=== PATIENT | female | born 1975 | race Caucasian/White ===

== ENCOUNTER 2016-12-06 12:28 | Emergency (ER) | payer MEDICAID ==
[~2016-12-06] VITALS: Ht 162.6 cm; Wt 79.8 kg
[~2016-12-06 12:28] MED LIST: LEXAPRO10 MG PO; PREDNISONE PO; ZOC10 PO
[2016-12-06 13:32] VITALS: BP 107/66
== END 2016-12-06 13:32 | disposition home or self-care (01) ==
LOC: ED 12:28
DX: R21 Rash and other nonspecific skin eruption (principal); L29.9 Pruritus, unspecified; Z88.5 Allergy status to narcotic agent
CPT/HCPCS: J2930; Q0163

== ENCOUNTER 2016-12-22 10:13 | Emergency (ER) | payer MEDICAID ==
[2016-12-22 10:21] VITALS: BP 102/51
== END 2016-12-22 12:09 | disposition home or self-care (01) ==
LOC: ED 10:13
DX: M54.5 Low back pain (principal); Z88.5 Allergy status to narcotic agent

== ENCOUNTER 2017-01-24 15:13 | Emergency (ER) | payer MEDICAID ==
[~2017-01-24] VITALS: Ht 162.6 cm; Wt 79.8 kg
[2017-01-24 16:58] VITALS: BP 122/68
== END 2017-01-24 16:58 | disposition home or self-care (01) ==
LOC: ED 15:13
DX: K08.89 Other specified disorders of teeth and supporting structures (principal); Z88.5 Allergy status to narcotic agent

== ENCOUNTER 2017-03-14 08:46 | Emergency (ER) | payer MEDICAID ==
[~2017-03-14] VITALS: Ht 162.6 cm; Wt 80.3 kg
[2017-03-14 09:34] VITALS: BP 117/78
== END 2017-03-14 09:34 | disposition home or self-care (01) ==
LOC: ED 08:46
DX: J02.9 Acute pharyngitis, unspecified (principal); J98.01 Acute bronchospasm; R30.0 Dysuria

== ENCOUNTER 2017-08-02 13:16 | Emergency (ER) | payer MEDICAID ==
[~2017-08-02] VITALS: Ht 162.6 cm; Wt 80.7 kg
[2017-08-02 14:26] VITALS: Ht 162.6 cm; Wt 80.7 kg
[2017-08-02 16:40] LABS: BASOPHIL % 0.8 % (0-2); PLATELET COUNT 221 x10^3mcL (130-400); RED CELL DISTRIBUTION WIDTH 13.6 % (11.5-14.5)
[2017-08-02 16:52] LABS: CALCIUM 8.7 mg/dL (8.5-10.1); CARBON DIOXIDE 27.1 mmol/L (21-32); CHLORIDE SERUM 102 mmol/L (98-107); CREATININE SERUM 0.8 mg/dL (0.6-1.0); GFR1 > 60 mL/min; GLUCOSE SERUM 86 mg/dL (74-106); POTASSIUM SERUM 3.7 mmol/L (3.5-5.1); SODIUM SERUM 140 mmol/L (136-145)
[2017-08-02 17:00] LABS: ALKALINE PHOSPHATASE 61 U/L (46-116); ALT/SGPT 29 U/L (14-59); AST/SGOT 14 U/L (15-37); BILIRUBIN TOTAL 0.4 mg/dL (0.20-1.00); LIPASE 115 IU/L (73-393)
[2017-08-02 18:11] VITALS: BP 99/59
== END 2017-08-02 19:03 | disposition home or self-care (01) ==
LOC: ED 13:16
PROVIDERS: Emergency Medicine
DX: R10.9 Unspecified abdominal pain (principal); R11.0 Nausea; Z88.5 Allergy status to narcotic agent; Z90.49 Acquired absence of other specified parts of digestive tract
CPT/HCPCS: 36415; J1885; Q0162

== ENCOUNTER 2018-03-18 10:12 | Emergency (ER) | payer MEDICAID ==
[~2018-03-18] VITALS: Ht 162.6 cm; Wt 83.5 kg
[2018-03-18 10:19] VITALS: Ht 162.6 cm; Wt 83.5 kg
[2018-03-18 13:05] VITALS: BP 113/59
== END 2018-03-18 13:05 | disposition home or self-care (01) ==
LOC: ED 10:12
DX: S43.402A Unspecified sprain of left shoulder joint, initial encounter (principal); X58.XXXA Exposure to other specified factors, initial encounter; Y93.89 Activity, other specified; Y92.89 Other specified places as the place of occurrence of the external cause; Y99.8 Other external cause status
CPT/HCPCS: J1885

== ENCOUNTER 2018-04-19 11:39 | Emergency (ER) | payer MEDICAID ==
[~2018-04-19] VITALS: Ht 162.6 cm; Wt 82.6 kg
[2018-04-19 12:47] LABS: microscopic required? YES; urine erythrocyte NEGATIVE (NEGATIVE)
[2018-04-19 14:50] VITALS: BP 132/74
== END 2018-04-19 14:50 | disposition home or self-care (01) ==
LOC: ED 11:39
PROVIDERS: Specialist
DX: G89.29 Other chronic pain (principal); R10.2 Pelvic and perineal pain; Z87.19 Personal history of other diseases of the digestive system; Z90.89 Acquired absence of other organs; Z90.49 Acquired absence of other specified parts of digestive tract; Z98.51 Tubal ligation status
CPT/HCPCS: 87491; 87591

== ENCOUNTER 2018-08-01 11:40 | Emergency (ER) | payer MEDICAID ==
[~2018-08-01] VITALS: Ht 162.6 cm; Wt 81.2 kg
[2018-08-01 11:45] VITALS: BP 106/42; Ht 162.6 cm; Wt 81.2 kg
== END 2018-08-01 13:38 | disposition home or self-care (01) ==
LOC: ED 11:40
DX: M54.6 Pain in thoracic spine (principal); Z90.710 Acquired absence of both cervix and uterus; Z88.6 Allergy status to analgesic agent
CPT/HCPCS: J1885; Q0162

== ENCOUNTER 2019-11-17 11:50 | Emergency (ER) | payer SELFPAY ==
[~2019-11-17] VITALS: Ht 162.6 cm; Wt 80.7 kg
[2019-11-17 11:57] VITALS: Ht 162.6 cm; Wt 80.7 kg
[2019-11-17 13:08] LABS: UA SPECIFIC GRAVITY <=1.005 (1.005-1.035); microscopic required? YES; urine erythrocyte NEGATIVE (NEGATIVE)
[2019-11-17 14:02] VITALS: BP 107/71
== END 2019-11-17 14:17 | disposition home or self-care (01) ==
LOC: ED 11:50
PROVIDERS: Emergency Medicine
DX: N39.0 Urinary tract infection, site not specified (principal); Z88.5 Allergy status to narcotic agent
CPT/HCPCS: 82962; J1885